=== PATIENT | male | born 1985 | race Caucasian/White ===

== ENCOUNTER 2016-10-05 20:31 | Emergency (ER) | payer SELFPAY ==
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
[2016-10-05 21:45] VITALS: BP 115/71; PULSE 91; O2SAT 99
== END 2016-10-05 21:43 | disposition home or self-care (01) ==
LOC: ED 20:31
DX: F12.920 Cannabis use, unspecified with intoxication, uncomplicated (principal)
CPT/HCPCS: 80307; 99283; P9612

== ENCOUNTER 2018-04-29 15:44 | Emergency (ER) | payer OTHER ==
[2018-04-29] MEDS ORDERED: Sodium Chloride 0.9% 1000 ML 1,000 ML IV STA (16:22)
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
[2018-04-29] MEDS ORDERED: Sodium Chloride 0.9% 1000 ML 1,000 ML ONE (16:34)
[2018-04-29 16:48] LABS: BASOPHIL % 0.4 % (0.0-0.4); Basophil (Absolute #) 0.03 (0-0.4); Eosinophil % 1.1 % (0.00-5.0); Eosinophil (Absolute #) 0.09 (0-0.5); Granulocyte Absolute (ANC) 5.46 (1.4-6.9); Granulocytes % 67.2 % (36.0-66.0); Hematocrit 51.5 % (42-50); Hemoglobin 17.9 gm/dl (12.5-18.0); Lymphocyte (Absolute #) 1.89 (1.0-4.6); Lymphocytes % 23.3 % (24.0-44.0); Mean Corpuscular Hgb Concent. 34.8 g/dl (32-36); Mean Platelet Volume 8.9 fl (6-9.5); Monocyte (Absolute #) 0.65 (0.0-1.3); Platelet Count 305 K/mm3 (150-450); Red Blood Count 5.42 M/mm3 (4.1-5.6); White Blood Count 8.1 K/mm3 (4.0-10.5)
[2018-04-29 16:58] LABS: Appearance CLEAR (CLEAR); Bilirubin NEGATIVE (NEGATIVE); Blood NEGATIVE Ery/ul (0-5); Glucose NEGATIVE (NEGATIVE); Ketones NEGATIVE (NEGATIVE); Leukocyte Esterase NEGATIVE (NEGATIVE); Nitrite NEGATIVE (NEGATIVE); Protein,Urine Dip NEGATIVE (Negative); Specific Gravity 1.002 (1.005-1.025); Urobilinogen NEGATIVE mg/dL (0-1)
[2018-04-29 17:07] LABS: ALBUMIN 4.8 g/dL (3.5-5.0); ALKALINE PHOSPHATASE 101 U/L (38-126); ANION GAP 16.6 MEQ/L (5-15); BLOOD UREA NITROGEN 10 mg/dL (9-20); CHLORIDE 108 mmol/L (98-107); Calcium 9.2 mg/dL (8.4-10.2); Carbon Dioxide 21 mmol/L (22-30); Glucose 101 mg/dL (74-106); SGOT/AST 31 U/L (17-59); SGPT/ALT 24 U/L (0-50); SODIUM 143 mmol/L (137-145)
[2018-04-29 17:07] LABS: Amphetamine,Urine NEGATIVE (NEGATIVE); Barbiturate,Urine NEGATIVE (NEGATIVE); Benzodiazepine,Urine NEGATIVE (NEGATIVE); Cocaine,Urine NEGATIVE (NEGATIVE); Methadone,Urine NEGATIVE (NEGATIVE); Opiate,Urine NEGATIVE (NEGATIVE); PCP,Urine NEGATIVE (NEGATIVE); THC,Urine NEGATIVE (NEGATIVE)
[2018-04-29 17:14] LABS: ACETAMINOPHEN < 10 ug/ml (10-30); SALICYLATE < 1.0 mg/dL (2-20)
[2018-04-29] MEDS ORDERED: THIAMINE 200 MG/2 ML IV ONE (17:17)
[2018-04-29] MEDS ORDERED: Nicoderm CQ 21 MG TOP ONE (17:19)
[2018-04-29] MEDS ORDERED: THIAMINE 200 MG/2 ML ONE (17:20)
[2018-04-29 17:29] VITALS: BP 102/68; PULSE 94
[2018-04-29 17:31] VITALS: O2SAT 96
== END 2018-04-29 17:43 | disposition home or self-care (01) ==
LOC: ED 15:44
DX: F10.120 Alcohol abuse with intoxication, uncomplicated (principal); Y04.0XXA Assault by unarmed brawl or fight, initial encounter
CPT/HCPCS: 36000; 36415; 80053; 80307; 81001; 85025; 93005; 96360; 96372; 99284; G0481; 96365; 96374; 96375; A9270-GY; G0480